=== PATIENT | male | born 1990 | race Caucasian/White ===

== ENCOUNTER 2017-06-25 14:35 | Emergency (ER) | payer MEDICAID ==
[2017-06-25 14:46] VITALS: BP 142/82; PULSE 81; TEMP 97.3; O2SAT 100
--- NOTE | 2017-06-25 15:54 | C.PDOC ---
History Of Present Illness 27 y/o M c no PMHx p/w neck pain, dry eyes, mouth lesions x 2 months. Patient states that his symptoms began gradually. Notes the pain is in the R sided neck and radiates to R upper back. Sharp, worse with movement. He also notes dry eyes , feels a "tightness" around the R ear, and also complains of oral lesions which are painful. He went to [facility] for these symptoms and was treated with a course of antibiotics and Magic Mouthwash but states symptoms persisted afterwards so came to ED for diagnostic evaluation. Denies fever, rhinorrhea, vomiting, frequent illness, skin rash. Time Seen by Provider: 06/25/17 15:25 Chief Complaint (Nursing): Back Pain Past Medical History Vital Signs: Last Vital Signs Temp 97.3 F L 06/25/17 14:43 Pulse 81 06/25/17 14:43 Resp 20 06/25/17 15:56 BP 142/82 06/25/17 14:43 Pulse Ox 100 06/25/17 16:27 Family History: States: No Known Family Hx - Social History Hx Alcohol Use: Yes Hx Substance Use: No - Immunization History Hx Tetanus Toxoid Vaccination: No Hx Influenza Vaccination: No Hx Pneumococcal Vaccination: No Review Of Systems Except As Marked, All Systems Reviewed And Found Negative. Constitutional: Negative for: Fever Respiratory: Negative for: Shortness of Breath Physical Exam - Physical Exam Appears: Well, Non-toxic, No Acute Distress Skin: No Rash Head: Atraumatic, Normacephalic Eye(s): bilateral: PERRL, EOMI Oral Mucosa: Moist Tongue: Lesions (bilateral punctate red lesions, also present on inferior tongue ) Lips: Normal Appearing Throat: No Erythema, No Exudate, No Drooling, No Mass Neck: No Midline Cervical Tenderness, Paracervical Tenderness (R), Supple Lymphatic: No Adenopathy Chest: No Tenderness Cardiovascular: Rhythm Regular Respiratory: No Accessory Muscle Use Gastrointestinal/Abdominal: Soft, No Tenderness, No Distention Back: No CVA Tenderness Extremity: No Tenderness, No Swelling Pulses: Left Radial: Normal, Right Radial: Normal Neurological/Psych: Normal Speech, Normal Cognition Gait: Steady ED Course And Treatment O2 Sat by Pulse Oximetry: 100 Medical Decision Making Medical Decision Making: Neck pain likely from muscle strain. No pulsatile mass, ptosis, anhydrosis observed on exam. Patient also denied tinnitus. I discussed the patient's dry eyes/oral lesions with patient. Unsure of diagnosis at this time but patient with normal vitals, appears well, and no indication for further ER evaluation at this time. Recommend f/u with PMD for further evaluation after first treatment regimen unsuccessful. Considering viral illness, Sjrogren's Syndrome. Disposition - Disposition Referrals: Aminata Styles MD [Staff Provider] - Disposition: HOME/ ROUTINE Disposition Time: 15:53 Condition: STABLE Prescriptions: Ibuprofen [Motrin] 1 tab PO Q6 #30 tab Instructions: Cervical Strain (DC) Forms: [employer] (B[place]ladeshi) - Clinical Impression Clinical Impression: Cervical strain
[2017-06-25 15:57] VITALS: RESP 20
== END 2017-06-25 15:56 | disposition home or self-care (01) ==
LOC: C.ER 14:35
DX: S16.1XXA Strain of muscle, fascia and tendon at neck level, initial encounter (principal); X58.XXXA Exposure to other specified factors, initial encounter